=== PATIENT | female | born 1985 | race African-American/Black ===

== ENCOUNTER 2017-01-25 11:44 | Outpatient (CLI) ==
[2017-01-25 12:55] LABS: FLU INTERNAL QC INTERNAL QC VALID
[2017-01-25 12:56] LABS: RAPID FLU A NEGATIVE (NEGATIVE); RAPID FLU B POSITIVE (NEGATIVE)
== END 2017-01-25 11:45 | disposition home or self-care (01) ==
LOC: LAB 11:44
PROVIDERS: ATTEND Nurse Practitioner Family
DX: J02.9 Acute pharyngitis, unspecified (principal); R05 Cough; R52 Pain, unspecified
CPT/HCPCS: 87651; 87804; 87880

== ENCOUNTER 2017-01-29 10:18 | Outpatient (CLI) ==
[2017-01-29 10:36] LABS: BASOPHILS # (AUTO) 0.1 K/uL (0-0.2); BASOPHILS % (AUTO) 0.8 % (0.0-3.0); EOSINOPHILS # (AUTO) 0.1 K/ul (0.0-0.7); EOSINOPHILS % (AUTO) 1.2 % (0.0-7.0); HEMATOCRIT 42.2 % (37.0-47.0); HEMOGLOBIN 14.4 g/dl (12.0-16.0); IMMATURE GRANULOCYTE % (AUTO) 0.3 % (0.0-5.0); LYMPHOCYTES # (AUTO) 2.1 K/uL (0.60-3.4); LYMPHOCYTES % (AUTO) 35.8 (10.0-50.0); MEAN CORPUSCULAR HEMOGLOBIN 29.9 pg (27.0-31.0); MEAN CORPUSCULAR HGB CONC 34.1 (31.8-35.4); MEAN CORPUSCULAR VOLUME 87.7 fl (81.0-99.0); MONOCYTES # (AUTO) 0.3 K/uL (0.4-2.0); MONOCYTES % (AUTO) 5.7 (0-10); NEUTROPHILS # (AUTO) 3.3 K/ul (2.0-6.9); NEUTROPHILS % (AUTO) 56.2; PLATELET COUNT 257 10^3/uL (140-440); RED BLOOD COUNT 4.81 10^6/ul (4.20-5.40); WHITE BLOOD COUNT 5.92 K/ul (4.6-10.2)
[2017-01-29 11:16] LABS: ALBUMIN 3.8 g/dL (3.4-5.0); ANION GAP 12.9; BILIRUBIN,TOTAL 0.49 mg/dL (0.00-1.20); BUN/CREATININE RATIO 9.78; CALCIUM 9.4 mg/dL (8.2-10.2); CHOL/HDL RATIO 3.9 (4.5-5.5); CREATININE 0.92 mg/dL (0.60-1.30); FERRITIN 36.76 ng/mL (4.63-204.00); POTASSIUM 2.9 mmol/L (3.5-5.10); TOTAL PROTEIN 7.6 g/dL (6.4-8.2)
== END 2017-01-29 10:19 | disposition home or self-care (01) ==
LOC: LAB 10:18
PROVIDERS: ATTEND Nurse Practitioner Family
DX: Z00.00 Encounter for general adult medical examination without abnormal findings (principal); I10 Essential (primary) hypertension; E66.01 Morbid (severe) obesity due to excess calories; E55.9 Vitamin D deficiency, unspecified; D50.9 Iron deficiency anemia, unspecified
CPT/HCPCS: 36415; 80053; 80061; 82306; 82607; 82728; 83540; 83550; 84443; 84466; 85025

== ENCOUNTER 2017-02-01 10:45 | Outpatient (CLI) | END 2017-02-01 10:46 | disposition home or self-care (01) | LOC: LAB 10:45 | PROVIDERS: ATTEND Nurse Practitioner Family | DX: E87.6 Hypokalemia (principal) | CPT/HCPCS: 36415; 84132 ==

== ENCOUNTER 2017-02-04 11:06 | Outpatient (CLI) | END 2017-02-04 11:07 | disposition home or self-care (01) | LOC: LAB 11:06 | PROVIDERS: ATTEND Nurse Practitioner Family | DX: E87.6 Hypokalemia (principal) | CPT/HCPCS: 36415; 84132 ==

== ENCOUNTER 2017-06-02 11:28 | Emergency (ER) ==
[2017-06-02 11:33] VITALS: BP 147/96; TEMP 98.2; BMI 51.6
[2017-06-02 11:54] LABS: URINE PREGNANCY INTERNAL QC INTERNAL QC VALID
--- NOTE | 2017-06-02 12:31 | ED.PDOC ---
General ED Provider: Dr. MILES LEDEZMA-ER Chief Complaint: Knee Pain/Injury Stated Complaint: my knee is hurting for several mos Time Seen by Physician: 11:30 Mode of Arrival: Walk-In Information Source: Patient Exam Limitations: No limitations [facility] T[facility] Documentation Reviewed and Agree: Yes Musculoskeletal Complaint Exam - Knee Pain Complaint/Exam Mechanism of Injury: Reports: No known trauma Onset/Duration: mos Symptoms Are: Still present Onset of Pain: Reports: Immediate Initial Severity: Mild Current Severity: Moderate Location: Reports: Discrete Character: Reports: Dull, Aching Aggravating: Reports: Movement, Weight bearing, Prolonged standing, Stairs Associated Signs and Symptoms: Reports: Swelling. Denies: Redness, Bruising, Fever, Weakness, Numbness, Tingling Able to Bear Weight: Yes Related History: Reports: Similar episode Septic Arthritis Risk Factors: Reports: None Knee Findings: Present: Swelling, Tenderness, Limited range of motion Dandy Test Positive: No Brendon Test Positive: No Differential Diagnoses: Internal Derangement, Sprain, Strain Review of Systems - Review Of Systems Constitutional: Reports: No symptoms Eyes: Reports: No symptoms Ears, Nose, Mouth, Throat: Reports: No symptoms Respiratory: Reports: No symptoms Cardiac: Reports: No symptoms GI: Reports: No symptoms : Reports: No symptoms Musculoskeletal: Reports: Joint pain, Joint swelling Skin: Reports: No symptoms Neurological: Reports: No symptoms Endocrine: Reports: No symptoms Hematologic/Lymphatic: Reports: No symptoms All Other Systems: Reviewed and Negative Past Medical History - Past Medical History Previously Healthy: Yes Endocrine: Reports: Unknown Cardiovascular: Reports: Unknown Respiratory: Reports: Unknown Hematological: Reports: Unknown Gastrointestinal: Reports: Unknown Genitourinary: Reports: Unknown Neuro/Psych: Reports: Unknown Musculoskeletal: Reports: Unknown Cancer: Reports: Unknown Last Menstrual Period: end of april - Surgical History General Surgical History: Reports: Unknown - Family History Family History: Reports: Unknown - Social History Smoking Status: Never smoker Hx Substance Use: No Alcohol Screening: None Physical Exam - Physical Exam Appearance: Well-appearing, No pain distress, Well-nourished Pain Distress: Mild Eyes: LUISANA ENT: Ears normal, Nose normal, Oropharynx normal Neck: Supple Respiratory: Airway patent, Breath sounds clear, Breath sounds equal, Respirations nonlabored Cardiovascular: RRR GI/: Soft, Nontender, No masses, Bowel sounds normal, No Organomegaly Musculoskeletal: Normal strength, No edema, No calf tenderness, Limited ROM Skin: Warm, Dry, Normal color Neurological: Sensation intact Psychiatric: Affect appropriate, Mood appropriate Interpretation - Radiology Interpretation Radiology Interpretation By: ED Physician Radiology Results: Positive Critical Care Note - Critical Care Note Total Time (mins): 0 Course - Course Orders, Labs, Meds: Lab Review 06/02/17 11:42 Urine Test Negative Orders Category Date Time Status URINE Stat LAB 06/02/17 11:42 Completed ANKLE, RIGHT MIN 3 VIEWS Stat RADS 06/02/17 11:36 Taken KNEE, RIGHT 4 VIEWS Stat RADS 06/02/17 11:36 Taken Vital Signs: Temp Pulse Resp BP Pulse Ox 06/02/17 11:28 98.2 F 68 18 147/96 H 97 Departure - Departure Time of Disposition: 12:31 Disposition: HOME SELF-CARE Discharge Problem: Knee pain Instructions: Knee Pain (ED) Condition: Good Pt referred to PMD for follow-up: Yes Additional Instructions: ultram 50mg q 6hrs prn pain#15--f/u with pcp--consider mri and or ortho referral Allergies/Adverse Reactions: Allergies Sulfa (Sulfonamide Antibiotics) Allergy (Intermediate, Verified 06/02/17 11:31) Itching Home Medications: Ambulatory Orders Sertraline HCl [Zoloft] 50 mg PO DAILY 06/02/17 Disposition Discussed With: Patient
--- NOTE | 2017-06-02 14:20 | DI ---
EXAM:Three-view right ankle COMPARISON: None HISTORY: Trauma and pain FINDINGS: There is no acute fracture or dislocation. Alignment is anatomic. Joint spaces are well preserved. There is a calcaneal Achilles spur. There is pes planus. There is some soft tissue swel ling. No unexpected radio-opaque foreign bodies. IMPRESSION: 1. No acute osseous abnormality. 2. Calcaneal plantar spur and pes planus. 3. Soft tissue swelling.
--- NOTE | 2017-06-02 14:24 | DI ---
EXAM:Four view right knee COMPARISON: 10/13/2014 HISTORY: Trauma and pain FINDINGS: There is no acute fracture or dislocation. Alignment is anatomic. There is a fair amoun t of osteoarthritic joint space narrowing and all three compartments with some marginal osteophytosi s and subchondral sclerosis throughout. Soft tissues are unremarkable. No unexpected radio-opaque f oreign bodies. IMPRESSION: 1. No acute osseous abnormality. 2. Advanced osteoarthritic changes.
== END 2017-06-02 12:42 | disposition home or self-care (01) ==
LOC: ED 11:28
DX: M25.561 Pain in right knee (principal)
CPT/HCPCS: 81025; 99282

== ENCOUNTER 2017-06-28 08:47 | Outpatient (CLI) | END 2017-06-28 08:48 | disposition home or self-care (01) | LOC: CAR 08:47 | PROVIDERS: ATTEND Physician Assistant | DX: R07.9 Chest pain, unspecified (principal) | CPT/HCPCS: 93005; 93010 ==

== ENCOUNTER 2017-08-31 07:31 | Emergency (ER) ==
[2017-08-31 07:36] VITALS: BP 154/93; TEMP 97.8; BMI 52.1
--- NOTE | 2017-08-31 07:54 | ED.PDOC ---
General ED Provider: Dr. DORIS VOGT Chief Complaint: Non-specific Complaint Stated Complaint: patient complains of fever and chills for the past few days. Denies any nausea or vomiting Time Seen by Physician: 07:53 Mode of Arrival: Walk-In Information Source: Patient Exam Limitations: No limitations Primary Care Provider: JOSHUA CUI Nursing and Triage Documentation Reviewed and Agree: Yes Review of Systems - Review Of Systems Constitutional: Reports: Chills, Fever Eyes: Reports: No symptoms Ears, Nose, Mouth, Throat: Reports: No symptoms Respiratory: Reports: No symptoms Cardiac: Reports: No symptoms GI: Reports: No symptoms : Reports: No symptoms Musculoskeletal: Reports: No symptoms Skin: Reports: No symptoms Neurological: Reports: No symptoms Endocrine: Reports: No symptoms Hematologic/Lymphatic: Reports: No symptoms All Other Systems: Reviewed and Negative Past Medical History - Past Medical History Previously Healthy: Yes Endocrine: Reports: Unknown Cardiovascular: Reports: Unknown Respiratory: Reports: Unknown Hematological: Reports: Unknown Gastrointestinal: Reports: Unknown Genitourinary: Reports: Unknown Neuro/Psych: Reports: Unknown Musculoskeletal: Reports: Unknown Cancer: Reports: Unknown Last Menstrual Period: 08/23/17 - Surgical History General Surgical History: Reports: Unknown - Family History Family History: Reports: Unknown - Social History Smoking Status: Never smoker Hx Substance Use: No Alcohol Screening: None - Immunizations Tetanus Shot up to Date: Yes Physical Exam - Physical Exam Appearance: Well-appearing, No pain distress, Obese Eyes: LUISANA, EOMI, Conjunctiva clear ENT: Ears normal, Nose normal, Oropharynx normal Neck: Supple Respiratory: Airway patent, Breath sounds clear, Breath sounds equal, Respirations nonlabored Cardiovascular: RRR, Pulses normal, No rub, No murmur GI/: Soft, Nontender, No masses, Bowel sounds normal, No Organomegaly Musculoskeletal: Normal strength, ROM intact, No edema, No calf tenderness Skin: Warm, Dry, Normal color Neurological: Sensation intact, Motor intact, Alert, Oriented Psychiatric: Affect appropriate, Mood appropriate Critical Care Note - Critical Care Note Total Time (mins): 0 Course - Course Orders, Labs, Meds: Lab Review 08/31/17 07:36 Influenza A (Rapid) Negative Influenza B (Rapid) Negative Orders Category Date Time Status FLU A & B RAPID TEST [RAPID FLU A/B] Stat LAB 08/31/17 07:36 Completed Vital Signs: Temp Pulse Resp BP Pulse Ox 08/31/17 07:32 97.8 F 70 18 154/93 H 97 Departure - Departure Time of Disposition: 08:28 Disposition: HOME SELF-CARE Discharge Problem: Viral syndrome Instructions: Viral Syndrome (ED) Condition: Good Pt referred to PMD for follow-up: Yes Additional Instructions: Push fluids Take Motrin or Tylenol as needed for fever. Take Zofran as needed for Nausea. Prescriptions: Ondansetron HCl [Zofran Tab] 4 mg PO Q8H PRN #15 tablet PRN Reason: Nausea / Vomiting Allergies/Adverse Reactions: Allergies Sulfa (Sulfonamide Antibiotics) Allergy (Intermediate, Verified 08/31/17 07:35) Itching Home Medications: Ambulatory Orders Sertraline HCl [Zoloft] 50 mg PO DAILY 06/02/17 Ondansetron HCl [Zofran Tab] 4 mg PO Q8H PRN #15 tablet 08/31/17 Disposition Discussed With: Patient
[2017-08-31 08:16] LABS: FLU INTERNAL QC INTERNAL QC VALID; RAPID FLU A NEGATIVE (NEGATIVE); RAPID FLU B NEGATIVE (NEGATIVE)
== END 2017-08-31 08:45 | disposition home or self-care (01) ==
LOC: ED 07:31
DX: B34.9 Viral infection, unspecified (principal)
CPT/HCPCS: 87804; 99283

== ENCOUNTER 2017-10-02 12:06 | Outpatient (CLI) ==
[2017-10-02 12:25] LABS: BASOPHILS % (AUTO) 0.4 % (0.0-3.0); EOSINOPHILS # (AUTO) 0.2 K/ul (0.0-0.7); EOSINOPHILS % (AUTO) 2.6 % (0.0-7.0); HEMATOCRIT 36.5 % (37.0-47.0); HEMOGLOBIN 12.2 g/dl (12.0-16.0); IMMATURE GRANULOCYTE % (AUTO) 0.3 % (0.0-5.0); LYMPHOCYTES # (AUTO) 2.2 K/uL (0.60-3.4); LYMPHOCYTES % (AUTO) 29.6 (10.0-50.0); MEAN CORPUSCULAR HEMOGLOBIN 30.4 pg (27.0-31.0); MEAN CORPUSCULAR HGB CONC 33.4 (31.8-35.4); MONOCYTES # (AUTO) 0.5 K/uL (0.4-2.0); MONOCYTES % (AUTO) 6.3 (0-10); NEUTROPHILS # (AUTO) 4.4 K/ul (2.0-6.9); NEUTROPHILS % (AUTO) 60.8; PLATELET COUNT 260 10^3/uL (140-440); RED BLOOD COUNT 4.01 10^6/ul (4.20-5.40)
[2017-10-02 12:44] LABS: ALBUMIN 3.7 g/dL (3.4-5.0); ALBUMIN/GLOBULIN RATIO 1.09; ANION GAP 11.7; BILIRUBIN,TOTAL 0.4 mg/dL (0.00-1.20); BUN/CREATININE RATIO 11.81; CALCIUM 9.7 mg/dL (8.2-10.2); CREATININE 1.1 mg/dL (0.60-1.30); MAGNESIUM 1.9 mg/dL (1.7-2.2); TOTAL PROTEIN 7.1 g/dL (6.4-8.2)
[2017-10-02 13:03] LABS: POTASSIUM 2.7 mmol/L (3.5-5.10)
== END 2017-10-02 12:07 | disposition home or self-care (01) ==
LOC: LAB 12:06
PROVIDERS: ATTEND Physician Assistant
DX: E87.6 Hypokalemia (principal)
CPT/HCPCS: 36415; 80053; 83735; 85025; 93005; 93010

== ENCOUNTER 2017-10-04 09:40 | Outpatient (CLI) ==
[2017-10-04 10:22] LABS: ALBUMIN 3.8 g/dL (3.4-5.0); ALBUMIN/GLOBULIN RATIO 1.06; ANION GAP 13.8; BILIRUBIN,TOTAL 0.5 mg/dL (0.00-1.20); BUN/CREATININE RATIO 11.65; CALCIUM 9.6 mg/dL (8.2-10.2); CREATININE 1.03 mg/dL (0.60-1.30); POTASSIUM 2.8 mmol/L (3.5-5.10); TOTAL PROTEIN 7.4 g/dL (6.4-8.2)
== END 2017-10-04 09:41 | disposition home or self-care (01) ==
LOC: LAB 09:40
PROVIDERS: ATTEND Physician Assistant
DX: E87.6 Hypokalemia (principal)
CPT/HCPCS: 36415; 80053

== ENCOUNTER 2017-10-09 08:47 | Outpatient (CLI) ==
[2017-10-09 09:45] LABS: ALBUMIN 3.6 g/dL (3.4-5.0); ALBUMIN/GLOBULIN RATIO 1.09; ANION GAP 9.7; BILIRUBIN,TOTAL 0.3 mg/dL (0.00-1.20); CALCIUM 9.2 mg/dL (8.2-10.2); TOTAL PROTEIN 6.9 g/dL (6.4-8.2)
[2017-10-09 09:54] LABS: POTASSIUM 2.7 mmol/L (3.5-5.10)
== END 2017-10-09 08:48 | disposition home or self-care (01) ==
LOC: LAB 08:47
PROVIDERS: ATTEND Physician Assistant
DX: E87.6 Hypokalemia (principal)
CPT/HCPCS: 36415; 80053

== ENCOUNTER 2017-10-09 11:53 | Emergency (ER) ==
[2017-10-09 12:02] VITALS: BP 147/84; TEMP 97.8; BMI 53.2
[2017-10-09] MEDS ORDERED: POTASSIUM CHLORIDE PREMIX RUN 10 MEQ in PREMIX 100 ML WATER 1 BAG IV STA (13:25)
[2017-10-09] MEDS ORDERED: K-DUR PO STA (13:26)
[2017-10-09] MEDS ORDERED: POTASSIUM CHLORIDE PREMIX RUN 100 ML IV ONE (13:49)
--- NOTE | 2017-10-09 17:41 | ED.PDOC ---
General ED Provider: Dr. XAVIER MAJANO Chief Complaint: Non-specific Complaint Stated Complaint: abnormal out pt labs Time Seen by Physician: 13:00 (seen with nursing staff at all times ) Mode of Arrival: Walk-In Information Source: Patient Exam Limitations: No limitations Primary Care Provider: JOSHUA CUI Nursing and Triage Documentation Reviewed and Agree: Yes Reviewed sepsis parameters & appropriate labs ordered?: Yes (serum k as out pt was 2.7 asymptomatic ) System Inflammatory Response Syndrome: Not Applicable Sepsis Protocol: For patient's 13 years and over: Temp is 96.8 and below OR 101 and greater Pulse >90 BPM Resp >20/minute Acutely Altered Mental Status Are patient's symptoms suggestive of a new infection, such as: -Pneumonia -Skin, Soft Tissue -Endocarditis -UTI -Bone, Joint Infection -Implantable Device -Acute Abdominal Infection -Wound Infection -Meningitis -Blood Stream Catheter Infection -Unknown Miscellaneous Complaint Exam - Complex/Multi-System Complaint/Exam Onset/Duration: today serum k as out pt was low 2.7 Symptoms Are: Still present Current Severity: None Associated Signs and Symptoms: Denies: Decreased responsiveness, Confusion, Agitation, Dizziness, Weakness, Syncope, Headache, Short of air, Cough, Wheezing , Hemoptysis, Chest pain, Palpitations, Edema, Nausea, Vomiting, Diarrhea, Abdominal pain, Back pain, Dysuria, Hematemesis, Melena, Decreased oral intake, Fever, Diaphoresis, Immunocompromised, Anticoagulation Therapy, Recent medication changes, Indwelling medical file clerk, Prior MRSA, Prior VRE, Recent trauma, Remote trauma Recent Echo/LV Function: No Respiratory Distress: None JVD Present: No Tachypnea Present: No Stridor Present: No Abdominal Findings: Present: Normal findings Glascow Coma Scale (see protocol): 15 Focal Weakness: Present: None Focal Sensory Loss: Present: None Gait: Normal Differential Diagnosis: Metabolic Abnormality Review of Systems - Review Of Systems Constitutional: Reports: No symptoms Eyes: Reports: No symptoms Ears, Nose, Mouth, Throat: Reports: No symptoms Respiratory: Reports: No symptoms Cardiac: Reports: No symptoms GI: Reports: No symptoms : Reports: No symptoms Musculoskeletal: Reports: No symptoms Skin: Reports: No symptoms Neurological: Reports: No symptoms Endocrine: Reports: No symptoms Hematologic/Lymphatic: Reports: No symptoms All Other Systems: Reviewed and Negative Past Medical History - Past Medical History Previously Healthy: Yes Endocrine: Reports: Unknown Cardiovascular: Reports: Unknown Respiratory: Reports: Unknown Hematological: Reports: Unknown Gastrointestinal: Reports: Unknown Genitourinary: Reports: Unknown Neuro/Psych: Reports: Unknown Musculoskeletal: Reports: Unknown Cancer: Reports: Unknown Last Menstrual Period: 08/2017 - Surgical History General Surgical History: Reports: Unknown - Family History Family History: Reports: Unknown - Social History Smoking Status: Never smoker Hx Substance Use: No Alcohol Screening: None - Immunizations Tetanus Shot up to Date: Yes Physical Exam - Physical Exam Appearance: Well-appearing, No pain distress, Well-nourished Eyes: LUISANA, EOMI, Conjunctiva clear ENT: Ears normal, Nose normal, Oropharynx normal Respiratory: Airway patent, Breath sounds clear, Breath sounds equal, Respirations nonlabored Cardiovascular: RRR, Pulses normal, No rub, No murmur GI/: Soft, Nontender, No masses, Bowel sounds normal, No Organomegaly Musculoskeletal: Normal strength, ROM intact, No edema, No calf tenderness Skin: Warm, Dry, Normal color Neurological: Sensation intact, Motor intact, Reflexes intact, Cranial nerves intact, Alert, Oriented Psychiatric: Affect appropriate, Mood appropriate Critical Care Note - Critical Care Note Total Time (mins): 0 Course - Course Hematology/Chemistry: 10/09/17 16:56 Orders, Labs, Meds: Lab Review 10/09/17 10/09/17 12:55 16:56 Sodium 144 144 Potassium 2.7 L* 3.1 L Chloride 105 106 Carbon Dioxide 32 30 Anion Gap 9.7 11.1 BUN 11 13 Creatinine 1.01 0.91 Estimated GFR (MDRD) 77.00 86.00 BUN/Creatinine Ratio 10.89 14.28 Glucose 96 84 Calcium 9.2 9.2 Total Bilirubin 0.3 AST 17 ALT 25 Alkaline Phosphatase 74 Total Protein 7.2 Albumin 3.6 Globulin 3.6 Albumin/Globulin Ratio 1.00 Orders Category Date Time Status EKG-(ED ONLY) Stat CARDIO 10/09/17 13:23 Completed BMP [BASIC METABOLIC PANEL] Stat LAB 10/09/17 16:56 Completed COMPREHENSIVE METABOLIC PANEL Stat LAB 10/09/17 12:55 Completed Potassium Chloride [K-Dur] MEDS 10/09/17 13:26 Discontinued 40 meq PO ONCE STA Potassium Chloride [Potassium Chloride Premix Run] 10 MEDS 10/09/17 13:25 Discontinued meq Premix 100 ml Water 1 bag IV ONCE Potassium Chloride [Potassium Chloride Premix Run] 100 MEDS 10/09/17 13:49 Discontinued ml IV .STK-MED Medications Discontinued Medications Generic Name Dose Route Start Last Admin Trade Name Ray PRN Reason Stop Dose Admin Potassium Chloride 10 meq/ 100 mls @ 100 mls/hr 10/09/17 13:25 10/09/17 14:09 Sterile Water IV 10/09/17 14:24 100 mls/hr ONCE STA Administration Potassium Chloride 40 meq 10/09/17 13:26 10/09/17 14:01 K-Dur PO 10/09/17 13:27 40 meq ONCE STA Administration Vital Signs: Temp Pulse Resp BP Pulse Ox 10/09/17 11:55 97.8 F 62 16 147/84 H 96 Departure - Departure Time of Disposition: 17:41 Disposition: HOME SELF-CARE Discharge Problem: Hypokalemia Instructions: Hypokalemia (ED) Condition: Good Pt referred to PMD for follow-up: Yes Additional Instructions: Please call your Family Physician as soon as possible to schedule a follow-up appointment. Allergies/Adverse Reactions: Allergies Sulfa (Sulfonamide Antibiotics) Allergy (Intermediate, Verified 10/09/17 12:02) Itching Home Medications: Ambulatory Orders Sertraline HCl [Zoloft] 50 mg PO DAILY 06/02/17 Potassium Citrate [Potassium Citrate ER] 20 meq PO BID 10/09/17
== END 2017-10-09 18:10 | disposition home or self-care (01) ==
LOC: ED 11:53
DX: E87.6 Hypokalemia (principal)
CPT/HCPCS: 36415; 80048; 80053; 93005; 93010; 96365; 96366; 99283

== ENCOUNTER 2018-01-22 10:53 | Outpatient (CLI) | payer OTHER | END 2018-01-22 10:54 | disposition home or self-care (01) | LOC: LAB 10:53 | PROVIDERS: ATTEND Internal Medicine Nephrology | DX: E55.9 Vitamin D deficiency, unspecified (principal); E87.6 Hypokalemia; I10 Essential (primary) hypertension | CPT/HCPCS: 36415; 80053; 84100 ==

== ENCOUNTER 2018-02-01 16:16 | Observation (INO) ==
[2018-02-01 16:19] VITALS: BMI 52.4
--- NOTE | 2018-02-01 17:02 | ED.PDOC ---
General ED Provider: Dr. MILES MCNAMARA Chief Complaint: Dizziness Stated Complaint: [place] intermittent chest palpitations for last 2days. 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 Denies stenuous activity. Dizziness. No syncope. No chest pain or dyspnea. Time Seen by Physician: 16:45 Mode of Arrival: Walk-In Information Source: Patient Exam Limitations: No limitations Primary Care Provider: JOSHUA CUI Nursing and Triage Documentation Reviewed and Agree: Yes Reviewed sepsis parameters & appropriate labs ordered?: Yes System Inflammatory Response Syndrome: Not Applicable Sepsis Protocol: For patient's 13 years and over: Temp is 96.8 and below OR 101 and greater Pulse >90 BPM Resp >20/minute Acutely Altered Mental Status Are patient's symptoms suggestive of a new infection, such as: -Pneumonia -Skin, Soft Tissue -Endocarditis -UTI -Bone, Joint Infection -Implantable Device -Acute Abdominal Infection -Wound Infection -Meningitis -Blood Stream Catheter Infection -Unknown System Inflammatory Response Syndrome: Not Applicable Cardiovascular Complaint Exam - Palpitations Complaint/Exam Symptoms Are: Resolved Timing: Intermittent Initial Severity: Moderate Current Severity: None Character: Reports: Fast, Irregular, Pounding Aggravating: Reports: Exertion, Rest, Position Alleviating: Reports: Rest Associated Signs and Symptoms: Reports: Lightheadedness, Dizziness Related History: Similar episode Related Surgical History: Reports: None Cardiac Risk Factors: Reports: Hypertension, Family history Atrial Fibrillation Risk Factors: Reports: Hypertension Thyroid Exam: Normal Differential Diagnoses: Mitral Valve Prolapse, Hypokalemia, Panic Disorder, Hyperventilation, Paroxysmal SVT Quality Indicators for AMI: EKG in 10min. Quality Indicators for Cardiac Chest Pain: EKG in 10min. Review of Systems - Review Of Systems Constitutional: Reports: No symptoms Eyes: Reports: No symptoms Ears, Nose, Mouth, Throat: Reports: No symptoms Respiratory: Reports: No symptoms Cardiac: Reports: No symptoms, Irregular heart rate, Lightheadedness, Palpitations GI: Reports: No symptoms : Reports: No symptoms Musculoskeletal: Reports: No symptoms Skin: Reports: No symptoms Neurological: Reports: No symptoms Endocrine: Reports: No symptoms Hematologic/Lymphatic: Reports: No symptoms All Other Systems: Reviewed and Negative Past Medical History - Past Medical History Previously Healthy: Yes Endocrine: Reports: Unknown Cardiovascular: Reports: Hypertension, Unknown Respiratory: Reports: Unknown Hematological: Reports: Unknown Gastrointestinal: Reports: Unknown Genitourinary: Reports: Unknown Neuro/Psych: Reports: Unknown Musculoskeletal: Reports: Unknown Cancer: Reports: Unknown Last Menstrual Period: 2 days ago - Surgical History General Surgical History: Reports: Unknown - Family History Family History: Reports: Unknown - Social History Smoking Status: Never smoker Hx Substance Use: No Alcohol Screening: None Physical Exam - Physical Exam Appearance: Well-appearing, No pain distress, Well-nourished, Obese Eyes: LUSIANA, EOMI, Conjunctiva clear ENT: Ears normal, Nose normal, Oropharynx normal Respiratory: Airway patent, Breath sounds clear, Breath sounds equal, Respirations nonlabored Cardiovascular: RRR, Pulses normal, No rub, No murmur GI/: Soft, Nontender, No masses, Bowel sounds normal, No Organomegaly Musculoskeletal: Normal strength, ROM intact, No edema, No calf tenderness Skin: Warm, Dry, Normal color Neurological: Sensation intact, Motor intact, Reflexes intact, Cranial nerves intact, Alert, Oriented Psychiatric: Affect appropriate, Mood appropriate Critical Care Note - Critical Care Note Total Time (mins): 60 Course - Course Hematology/Chemistry: 02/01/18 17:20 02/01/18 17:20 Orders, Labs, Meds: Lab Review 02/01/18 02/01/18 02/01/18 17:20 17:20 17:20 WBC 7.78 RBC 4.50 Hgb 13.6 Hct 40.8 MCV 90.7 MCH 30.2 MCHC 33.3 RDW Coeff of Patrica 13.6 Plt Count 236 Immature Gran % (Auto) 0.3 Neut % (Auto) 61.0 Lymph % (Auto) 30.7 [place] % (Auto) 6.0 Eos % (Auto) 1.4 Baso % (Auto) 0.6 Immature Gran # (Auto) 0.0 Neut # (Auto) 4.7 Lymph # (Auto) 2.4 [place] # (Auto) 0.5 Eos # (Auto) 0.1 Baso # (Auto) 0.1 D-Dimer (Manual) 266.22 Sodium 140 Potassium 3.2 L Chloride 100 Carbon Dioxide 29 Anion Gap 14.2 BUN 8 Creatinine 1.06 Estimated GFR (MDRD) 72.00 BUN/Creatinine Ratio 7.54 Glucose 85 Calcium 10.0 Total Bilirubin 0.6 AST 23 ALT 22 Alkaline Phosphatase 70 Total Protein 7.6 Albumin 3.8 Globulin 3.8 Albumin/Globulin Ratio 1.00 Orders Category Date Time Status ADMIT PATIENT INPATIENT .TO MEDSURG (MONITORED BED) ADMISSION 02/01/18 19: 25 Active EKG-(ED ONLY) Stat CARDIO 02/01/18 17:05 Completed TELEMETRY MONITORING TELE CARE 02/01/18 19:28 Active CBC W/ AUTO DIFF Stat LAB 02/01/18 17:20 Completed CMP [COMPREHENSIVE METABOLIC PANEL] Stat LAB 02/01/18 17:20 Completed D-DIMER Stat LAB 02/01/18 17:20 Completed UA [URINALYSIS C & S IF INDICATED] Stat LAB 02/01/18 17:05 Uncollected URINE DRUG SCREEN (RAPID FOR ED) [DRUG SCREEN, URINE, LAB 02/01/18 17:05 Uncollected RAPID] Stat CHEST, 2 VIEWS PA & LAT Stat RADS 02/01/18 17:05 Completed Vital Signs: Temp Pulse Resp BP Pulse Ox 02/01/18 16:17 97.2 F L 72 16 141/109 H 96 CATIE Risk Score CATIE Risk Score: Risk Score Odds of by 30D 0 0.1 (0.1-0.2) 1 0.3 (0.2-0.3) 2 0.4 (0.3-0.5) 3 0.7 (0.6-0.9) 4 1.2 (1.0-1.5) 5 2.2 (1.9-2.6) 6 3.0 (2.5-3.6) 7 4.8 (3.8-6.1) Departure - Departure Time of Disposition: 19:15 Disposition: ADMITTED INPATIENT Discharge Problem: Hypertension, uncontrolled, Heart palpitations, Obesity Condition: Good Pt referred to PMD for follow-up: Yes (Dr de la garza) [facility] verified?: Yes Allergies/Adverse Reactions: Allergies Sulfa (Sulfonamide Antibiotics) Allergy (Intermediate, Verified 10/09/17 12:02) Itching Home Medications: Ambulatory Orders Sertraline HCl [Zoloft] 50 mg PO DAILY 06/02/17 Potassium Citrate [Potassium Citrate ER] 20 meq PO BID 10/09/17 Ibuprofen 800 mg PO PRN PRN 02/01/18 Disposition Discussed With: Patient, Family Activities Patient Interests:: Visiting/Socializing, Listening to Music Additional Information: discussed case with Dr De La Garza who agrees to admission and evaluation of patients symptoms
--- NOTE | 2018-02-01 18:46 | DI ---
EXAM: Two views of the chest. History: Palpitations Findings: Heart size is within normal limits. No focal consolidation. No appreciable pleural fluid and no pneumothorax. No acute osseous abnormalities. Impression: No acute cardiopulmonary process
[2018-02-01] MEDS ORDERED: K-DUR PO STA (20:49)
[2018-02-01] MEDS ORDERED: NON-FORMULARY MEDICATION (Metoprolol Tartrate [Metoprolol Tartrate] 100 MG) PO SCH (21:00)
[2018-02-01] MEDS ORDERED: POTASSIUM CITRATE 20 MEQ PO SCH (21:00)
[2018-02-01] MEDS ORDERED: LOPRESSOR ONE (21:39)
[2018-02-01] MEDS: LOPRESSOR PO SCH (21:59)
[2018-02-02] MEDS: NORVASC PO SCH (08:38)
[2018-02-02] MEDS: HYZAAR 50-12.5 MG TAB PO SCH (08:38)
[2018-02-02] MEDS: VITAMIN D PO SCH (08:38)
[2018-02-02] MEDS: LOPRESSOR PO SCH ×2 (08:38→20:30)
[2018-02-02] MEDS: K-DUR PO SCH ×2 (08:38→20:30)
[2018-02-02] MEDS: FERROUS SULFATE PO SCH (08:39)
[2018-02-02] MEDS: ZOLOFT PO SCH (08:39)
[2018-02-02] MEDS ORDERED: NON-FORMULARY MEDICATION (Ferrous Sulfate [Ferrous Sulfate] 325 MG) PO SCH (09:00)
[2018-02-02] MEDS ORDERED: NON-FORMULARY MEDICATION (Amlodipine Besylate [Amlodipine Besylate] 10 MG) PO SCH (09:00)
[2018-02-02] MEDS ORDERED: NON-FORMULARY MEDICATION (Losartan/Hydrochlorothiazide [Losartan-Hctz 100-25 Mg Tab] 1 EAC PO SCH (09:00)
[2018-02-03] MEDS ORDERED: DECADRON 4 MG/ML SDV IM STA (08:44)
[2018-02-03] MEDS: VITAMIN D PO SCH (08:52)
[2018-02-03] MEDS: NORVASC PO SCH (08:52)
[2018-02-03] MEDS: FERROUS SULFATE PO SCH (08:52)
[2018-02-03] MEDS: HYZAAR 50-12.5 MG TAB PO SCH (08:52)
[2018-02-03] MEDS: LOPRESSOR PO SCH (08:52)
[2018-02-03] MEDS: ZOLOFT PO SCH (08:52)
[2018-02-03] MEDS: K-DUR PO SCH (08:52)
[2018-02-03 10:00] VITALS: BP 117/76; TEMP 98
--- NOTE | 2018-02-03 12:57 | HOLTER ---
PATIENT INFORMATION AND COMMENTS Attending Physician: DR. NICO KIRKPATRICK Indications: UNCONTROLLED HYPERTENSION, HEART PALPITATIONS, OBESTIY __ Patient Medications: LOPRESSOR, FERROUS SULFATE, LOSARTAN, POTASSIUM, AMLODIPINE, ZOLOFT, METOPROLOL __ Pre-procedure Summary: Protocol: Standard Heart Rate Started: 02/01/182247 Minimum: 53 BPM Weight: 315 LBS Ended: 02/02/182240 Maximum: 110 BPM Height: 65" Duration: 23 HRS 52 MIN Average: 67 BPM _ INTERPRETATIONS/OBSERVATIONS: 1. BASIC RHYTHM: SINUS, RATE 53 BPM TO 110 BPM, AVERAGE 67 BPM 2. INFREQUENT PAC'S AND PVC'S, SOME ARE BLOCKED PAC'S 3. NO TACHY ARRYTHMIA'S 4. ACTIVITY LOG NOT MAINTAINED MTDD
--- NOTE | 2018-02-03 13:32 | ECHO2D ---
Date of Exam: 02/02/18 Ordering Physician: DR. LEANNE HURLEY Room #: [id number] Reason for Echo: PALPITATIONS M-Mode Normal Adult Results LV Dimensions Normal Adult Results AoV Opening excursions >1.6 >1.6 LVEDD-base- 3.5-5.8 3.9 Ao root dimensions 2.0-3.7 3.3 LVESD-base- 3.1-4.6 L. Atrium dimensions 1.9-3.8 3.6 Post. Wall thickness 0.8-1.1 1.3 IV septum (thickness) 0.7-1.2 1.3 Post. Wall excursion 0.72-1.3 NORMAL Septal motion NORMAL Systolic motion R. Ventricular cavity 1.5-2.0 NORMAL LVEF 60% 66% Paradoxical septal wall motion NORMAL 2-D : 2-D M Mode Echocardiogram was performed using apical four chamber and left parasternal long and short axis views. Mitral, tricuspid and aortic valves appear to be normal. Contractility of the left ventricle seems to be normal, so is the cavity size. Left atrial cavity size and aortic root appear to be normal. There is no pericardial effusion. There is no thrombus noted in the left ventricular or left aortic cavity. No mitral valve prolapse noted. M-MODE: MV: NORMAL AV: NORMAL TV: NORMAL PV: CHAMBER SIZE: NORMAL WALL MOTION: NORMAL PERICARDIUM: NORMAL INTERPRETATION: 1. LEFT VENTRICULAR HYPERTROPHY 2. NORMAL LEFT VENTRICULAR CONTRACTILITY 3. NORMAL VALVES MTDD
--- NOTE | 2018-02-11 14:44 | HP ---
DATE OF SERVICE: 02/01/18 HISTORY OF PRESENT ILLNESS: This is a 32-year-old female came to the emergency room with palpitations, anxiety and elevated blood pressure. She was having some dizzy episodes. The patient has been having trouble controlling the blood pressure. The patient was seen by Dr. Molina. White count was normal. D. dimer 266, potassium 3.2. Blood pressure was 141/109. At that time, the patient was admitted to the hospital with uncontrolled hypertension, palpitations and dizziness to rule out any cardiac problems. History of hypokalemia and the patient does have some muscle cramps. REVIEW OF SYSTEMS: CONSTITUTIONAL: No fatigue. No fever, no chills. HEENT: Normal. ENDOCRINE: No weight gain; no weight loss. CVS: No chest pain. No PND, no orthopnea. No shortness of breath. No PND, no orthopnea. RESPIRATORY: No cough, no congestion. No hemoptysis. GI: No nausea, no vomiting. No abdominal pain. No melena. : No hematuria. No polyuria. MUSCULOSKELETAL: No joint swelling. PSYCHIATRIC: Not anxious. No depression. No suicidal thoughts. No homicidal thoughts. SKIN: Intact, no open lesions. PAST MEDICAL HISTORY: Hypertension Left ventricular hypertrophy Hypokalemia Sleep apnea on CPAP Osteoarthritis DJD spine Bipolar disorder (was on medication but not now) PAST SURGICAL HISTORY: None PERSONAL HISTORY: Nonsmoker. Does not drink alcohol. FAMILY HISTORY: Significant for back problem and heart problems. MEDICATIONS: (Home) Norvasc Metoprolol Losartan Hydrochlorothiazide Sertraline Potassium Ibuprofen Cholecalciferol Ferrous Sulfate ALLERGIES: SULFA PHYSICAL EXAMINATION: V/S: BP 152/101, respiratory rate 17, heart rate 67, temperature 97.7, saturation 98. HEENT: Atraumatic, normocephalic. No scleral icterus. NECK: Supple. No JVD, no bruit. No lymphadenopathy. No thyromegaly. HEART: S1, S2 normal. No murmur. No cyanosis or clubbing. No ascites. LUNGS: Clear to auscultation. No rales or rhonchi. ABDOMEN: Morbid obese lady. Soft, nontender. Bowel sounds are active. No CVA tenderness. No rigidity or guarding. EXTREMITIES: No pedal edema. No cyanosis or clubbing MUSCULOSKELETAL: Normal joints, no swelling. NEUROLOGIC: Normal. SKIN: Intact; no open lesions. LYMPHATIC: No lymph nodes palpable. LABS: Sodium 140, potassium 3.2, chloride 100, bicarb 29, BUN 8, creatinine 1.06, glucose 85, white count 7.78, hemoglobin 13.6, hematocrit 40.8, platelet count 236. ASSESSMENT: 1. UNCONTROLLED HYPERTENSION 2. DIZZINESS 3. PALPITATIONS 4. HISTORY OF HYPERTENSION 5. DYSLIPIDEMIA 6. LEFT VENTRICULAR HYPERTROPHY 7. HYPOKALEMIA PLAN: 1. Admit patient to the regular floor 2. CBC, CMP today and daily 3. Cardiac enzymes and troponin 4. Replace potassium 5. Continue home medication TIME SPENT: MORE THAN 65 minutes today MTDD
--- NOTE | 2018-02-11 14:56 | DS ---
DATE OF SERVICE: 02/03/18 FINAL DIAGNOSIS: 1. PALPITATIONS AND DIZZINESS 2. HYPERTENSION, UNCONTROLLED 3. HISTORY OF HYPERTENSION 4. CARDIOMEGALY 5. HISTORY OF LVH 6. OBSTRUCTIVE SLEEP APNEA, DOES NOT USE A CPAP 7. MORBID OBESITY 8. OSTEOARTHRITIS 9. BIPOLAR DISORDER, USE TO BE ON MEDICATION DISCHARGE INSTRUCTIONS: 1. Discharge the patient home 2. Continue home medications 3. Followup with Jennifer Azar [facility] MEDICATIONS AT DISCHARGE: Norvasc 10 mg p.o. daily Losartan Hydrochlorothiazide Cholecalciferol Ferrous Sulfate Ibuprofen Metoprolol 50 mg p.o. b.i.d. Potassium Zoloft NEW PRESCRIPTIONS: Meclizine (Antivert) 25 mg one p.o. twice daily if needed for dizziness Prednisone 10 mg one p.o. with food twice daily for 5 days DIET INSTRUCTIONS: Cardiac and Healthy ACTIVITY: As much as tolerated SMOKING: N/A DISEASE SPECIFIC EDUCATION: Lifestyle modification, weight loss discussed Uncontrolled hypertension Risk of stroke CAD The patient verbalized understanding to all the above. HOSPITAL COURSE: This is a 32-year-old female who has a history of high blood pressure which fluctuates all the time. She came to the emergency room dizzy, lightheaded, palpitations. She does have a history of sleep apnea but she does not use the CPAP. EKG was normal sinus rhythm. No ST-T wave changes. Initial blood pressure was 141/109 then 152/104. Resumed the home medication. Blood pressure became normal. The patient's cholesterol panel was normal. Potassium was replaced. Echocardiogram was done which did show enlarged heart. Otherwise, no new findings. Explained to the patient about the lifestyle modifications, weight loss, diet control. TIME SPENT: MORE THAN 60 MINUTES MTDD
== END 2018-02-03 13:32 | disposition home or self-care (01) ==
LOC: ED 16:16 → INTOOBSV 19:44 → UNDOADMOB 19:44 → MEDSURG B 19:44 → UNDODISOB 02-03 13:32
PROVIDERS: ADMIT Emergency Medicine; ATTEND Emergency Medicine
DX: R00.2 Palpitations (principal); R42 Dizziness and giddiness; I51.7 Cardiomegaly; I10 Essential (primary) hypertension; E66.01 Morbid (severe) obesity due to excess calories; E87.6 Hypokalemia; G47.30 Sleep apnea, unspecified; M19.90 Unspecified osteoarthritis, unspecified site; F31.9 Bipolar disorder, unspecified; F41.9 Anxiety disorder, unspecified; Z79.899 Other long term (current) drug therapy
CPT/HCPCS: 36415; 80053; 80061; 80306; 81001; 84443; 85025; 85379; 87086; 93005; 93010; 93227; 99284

== ENCOUNTER 2018-04-28 11:24 | Emergency (ER) ==
[2018-04-28 11:32] VITALS: BP 135/87; TEMP 98.3; BMI 53.7
--- NOTE | 2018-04-28 11:47 | ED.PDOC ---
General ED Provider: Dr. HUSSEIN MEHTA Chief Complaint: Vaginal Bleeding Stated Complaint: Vaginal bleeding 2 weeks Time Seen by Physician: 11:43 Mode of Arrival: Walk-In Information Source: Patient Primary Care Provider: JOSHUA CUI Nursing and Triage Documentation Reviewed and Agree: Yes Does patient meet sepsis criteria?: No System Inflammatory Response Syndrome: Not Applicable Sepsis Protocol: For patient's 13 years and over: Temp is 96.8 and below OR 101 and greater Pulse >90 BPM Resp >20/minute Acutely Altered Mental Status Are patient's symptoms suggestive of a new infection, such as: -Pneumonia -Skin, Soft Tissue -Endocarditis -UTI -Bone, Joint Infection -Implantable Device -Acute Abdominal Infection -Wound Infection -Meningitis -Blood Stream Catheter Infection -Unknown Complaint Exam - Complaint/Exam Patient Complains of: Reports: Vaginal discharge (Vaginal bleeding X 2 weeks) Symptoms Are: Still present Initial Severity: Moderate Current Severity: Moderate Location of Pain: Reports: None Aggravating: Reports: None Alleviating: Reports: None Associated Signs and Symptoms: Reports: Back pain (also weak and feeling like might pass out) Related History: Reports: Similar episode (Usually has heavy periods - never this long; saw SCROLL SHEAR OPERATOR 2 months ago because of "double period"; told to come back in May) Review of Systems - Review Of Systems Constitutional: Reports: Malaise, Weakness Respiratory: Reports: No symptoms Cardiac: Reports: Lightheadedness (feeling might pass out) : Denies: No symptoms, Burning, Dysuria, Discharge, Frequency, Flank pain Musculoskeletal: Reports: Back pain All Other Systems: Reviewed and Negative Past Medical History - Past Medical History Previously Healthy: Yes Endocrine: Reports: Unknown Cardiovascular: Reports: Hypertension, Unknown Respiratory: Reports: Unknown Hematological: Reports: Unknown Gastrointestinal: Reports: Unknown Genitourinary: Reports: Unknown Neuro/Psych: Reports: Unknown Musculoskeletal: Reports: Unknown Cancer: Reports: Unknown Last Menstrual Period: now - Surgical History General Surgical History: Reports: Unknown - Family History Family History: Reports: Unknown - Social History Smoking Status: Never smoker Hx Substance Use: No Alcohol Screening: None Physical Exam - Physical Exam Appearance: Well-appearing ENT: Oropharynx normal Neck: Supple Respiratory: Airway patent, Breath sounds clear, Breath sounds equal Cardiovascular: RRR, Pulses normal GI/: Soft, Nontender, Bowel sounds normal Musculoskeletal: Normal strength, ROM intact, No edema Skin: Warm, Dry, Normal color Neurological: Sensation intact, Motor intact Psychiatric: Affect appropriate, Mood appropriate Critical Care Note - Critical Care Note Total Time (mins): 20 Course - Course Hematology/Chemistry: 04/28/18 12:03 04/28/18 12:03 Orders, Labs, Meds: Lab Review 04/28/18 04/28/18 04/28/18 12:03 12:03 12:03 WBC 6.95 RBC 3.97 L Hgb 12.1 Hct 35.2 L MCV 88.7 MCH 30.5 MCHC 34.4 RDW Coeff of Patrica 13.2 Plt Count 267 Immature Gran % (Auto) 0.4 Neut % (Auto) 65.9 Lymph % (Auto) 26.2 Hale % (Auto) 4.6 Eos % (Auto) 2.2 Baso % (Auto) 0.7 Immature Gran # (Auto) 0.0 Neut # (Auto) 4.6 Lymph # (Auto) 1.8 Hale # (Auto) 0.3 L Eos # (Auto) 0.2 Baso # (Auto) 0.1 Sodium 137 Potassium 3.6 Chloride 105 Carbon Dioxide 24 Anion Gap 11.6 BUN 10 Creatinine 0.96 Estimated GFR (MDRD) 81.00 BUN/Creatinine Ratio 10.41 Glucose 95 Calcium 9.3 Total Bilirubin 0.4 AST 13 L ALT 10 L Alkaline Phosphatase 74 Total Protein 7.0 Albumin 3.6 Globulin 3.4 Albumin/Globulin Ratio 1.06 Serum , Qual Negative Orders Category Date Time Status CBC W/ AUTO DIFF Stat LAB 04/28/18 12:03 Completed COMPREHENSIVE METABOLIC PANEL Stat LAB 04/28/18 12:03 Completed SERUM TEST [SERUM ] Stat LAB 04/28/18 12:03 Completed Vital Signs: Temp Pulse Resp BP Pulse Ox 04/28/18 11:25 98.3 F 80 20 135/87 97 Departure - Departure Time of Disposition: 13:16 Disposition: HOME SELF-CARE Discharge Problem: Abnormal uterine bleeding Instructions: Menorrhagia (ED) Condition: Good Pt referred to PMD for follow-up: Yes (Call SCROLL SHEAR OPERATOR for appointment) IPMP verified?: No (No narcotics prescribed) Additional Instructions: Follow up with primary care or SCROLL SHEAR OPERATOR; call for appointment. Let them know of your ER visit and that blood work showed no significant loss of blood or any other abnormality. Allergies/Adverse Reactions: Allergies Sulfa (Sulfonamide Antibiotics) Allergy (Intermediate, Verified 04/28/18 11:34) Itching Home Medications: Ambulatory Orders Potassium Citrate [Potassium Citrate ER] 20 meq PO BID 10/09/17 Ferrous Sulfate 325 mg PO DAILY 02/01/18 Ibuprofen 800 mg PO PRN PRN 02/01/18 Metoprolol Tartrate 50 mg PO BID 02/01/18
== END 2018-04-28 13:35 | disposition home or self-care (01) ==
LOC: ED 11:24
DX: N93.8 Other specified abnormal uterine and vaginal bleeding (principal)
CPT/HCPCS: 36415; 80053; 84703; 85025; 99282

== ENCOUNTER 2018-07-20 07:35 | Emergency (ER) ==
[2018-07-20 07:44] VITALS: BP 153/105; TEMP 98; BMI 50.7
[2018-07-20 08:55] LABS: URINE PREGNANCY TEST NEGATIVE (NEGATIVE)
--- NOTE | 2018-07-20 09:12 | DI ---
Exam: Two-view chest x-ray. Date: 07/20/2018. Comparison: None. HISTORY: Palpitations. FINDINGS: No acute osseous abnormalities are seen. The lungs are clear. Cardiac silhouette and pulm onary vasculature are normal. Impression: No acute intrathoracic findings.
--- NOTE | 2018-07-20 09:27 | ED.PDOC ---
General ED Provider: Dr. XAVIER MAJANO Chief Complaint: Palpitations Stated Complaint: palpitation Time Seen by Physician: 07:40 (seen with her nurse at all times) Mode of Arrival: Walk-In Information Source: Patient Exam Limitations: No limitations Primary Care Provider: JOSHUA CUI Nursing and Triage Documentation Reviewed and Agree: Yes Does patient meet sepsis criteria?: No System Inflammatory Response Syndrome: Not Applicable Sepsis Protocol: For patient's 13 years and over: Temp is 96.8 and below OR 101 and greater Pulse >90 BPM Resp >20/minute Acutely Altered Mental Status Are patient's symptoms suggestive of a new infection, such as: -Pneumonia -Skin, Soft Tissue -Endocarditis -UTI -Bone, Joint Infection -Implantable Device -Acute Abdominal Infection -Wound Infection -Meningitis -Blood Stream Catheter Infection -Unknown Cardiovascular Complaint Exam - Palpitations Complaint/Exam Onset/Duration: today Symptoms Are: Resolved Timing: Intermittent Initial Severity: Mild Current Severity: None Character: Reports: Pounding Aggravating: Reports: Rest Alleviating: Reports: None Associated Signs and Symptoms: Denies: Lightheadedness, Dizziness, Syncope, Chest pain, Shortness of breath, Diaphoresis, Nausea, Vomiting Related History: Similar episode Related Surgical History: Reports: None Cardiac Risk Factors: Reports: Hypertension Pulmonary Embolism Risk Factors: Reports: None Atrial Fibrillation Risk Factors: Reports: Hypertension Thyroid Exam: Normal Differential Diagnoses: Paroxysmal SVT Quality Indicators for AMI: EKG in 10min. Quality Indicators for Cardiac Chest Pain: EKG in 10min. Quality Indicator For Non-Traumatic Chest Pain/Syncope: EKG Performed Review of Systems - Review Of Systems Constitutional: Reports: No symptoms Eyes: Reports: No symptoms Ears, Nose, Mouth, Throat: Reports: No symptoms Respiratory: Reports: No symptoms Cardiac: Reports: Palpitations GI: Reports: No symptoms : Reports: No symptoms Musculoskeletal: Reports: No symptoms Skin: Reports: No symptoms Neurological: Reports: No symptoms Endocrine: Reports: No symptoms Hematologic/Lymphatic: Reports: No symptoms All Other Systems: Reviewed and Negative Past Medical History - Past Medical History Previously Healthy: Yes Endocrine: Reports: Unknown Cardiovascular: Reports: Hypertension, Unknown Respiratory: Reports: Unknown Hematological: Reports: Unknown Gastrointestinal: Reports: Unknown Genitourinary: Reports: Unknown Neuro/Psych: Reports: Unknown Musculoskeletal: Reports: Unknown Cancer: Reports: Unknown Last Menstrual Period: last month - Surgical History General Surgical History: Reports: Unknown - Family History Family History: Reports: Unknown - Social History Smoking Status: Never smoker Hx Substance Use: No Alcohol Screening: None Physical Exam - Physical Exam Appearance: Well-appearing, No pain distress, Well-nourished Eyes: LUISANA, EOMI, Conjunctiva clear ENT: Ears normal, Nose normal, Oropharynx normal Respiratory: Airway patent, Breath sounds clear, Breath sounds equal, Respirations nonlabored Cardiovascular: RRR, Pulses normal, No rub, No murmur GI/: Soft, Nontender, No masses, Bowel sounds normal, No Organomegaly Musculoskeletal: Normal strength, ROM intact, No edema, No calf tenderness Skin: Warm, Dry, Normal color Neurological: Sensation intact, Motor intact, Reflexes intact, Cranial nerves intact, Alert, Oriented Psychiatric: Affect appropriate, Mood appropriate Interpretation - Radiology Interpretation Radiology Interpretation By: Radiologist Radiology Results: No acute changes - Nursing Tech Rate: Normal Rhythm: Sinus Ectopy: None - EKG Interpretation Rate: Normal Rhythm: Sinus Ectopy: None [place]: Left ST Segment: Normal Re-Evaluation - Re-Evaluation Time of Re-Evaluation: 08:00 (no palpitation) Status: Improved Vital Signs Stable: Yes Pain Level: 0 Appearance: NAD Lungs: Clear Skin: Warm and Dry Neuro: Alert and Oriented X3 CV: RRR - Re-Evaluation Time of Re-Evaluation: 09:28 (no palpitations) Status: Improved Vital Signs Stable: Yes Pain Level: 0 Appearance: NAD Skin: Warm and Dry Neuro: Alert and Oriented X3 CV: RRR Critical Care Note - Critical Care Note Total Time (mins): 0 Course - Course Hematology/Chemistry: 07/20/18 08:10 07/20/18 08:10 Orders, Labs, Meds: Lab Review 07/20/18 07/20/18 07/20/18 08:10 08:10 08:40 WBC 7.46 RBC 4.23 Hgb 12.1 Hct 36.1 L MCV 85.3 MCH 28.6 MCHC 33.5 RDW Coeff of Patrica 12.9 Plt Count 261 Immature Gran % (Auto) 0.3 Neut % (Auto) 73.2 Lymph % (Auto) 19.4 [place] % (Auto) 5.5 Eos % (Auto) 1.1 Baso % (Auto) 0.5 Immature Gran # (Auto) 0.0 Neut # (Auto) 5.5 Lymph # (Auto) 1.5 [place] # (Auto) 0.4 Eos # (Auto) 0.1 Baso # (Auto) 0.0 Sodium 141.7 Potassium 3.02 L Chloride 106.8 Carbon Dioxide 26.3 Anion Gap 11.62 BUN 6.6 L Creatinine 1.09 Estimated GFR (MDRD) 70.00 BUN/Creatinine Ratio 6.05 Glucose 99.5 Calcium 9.37 Total Bilirubin 0.27 AST 32.6 ALT 16.3 Alkaline Phosphatase 70.0 Total Creatine Kinase 299.5 H CK-MB (CK-2) 0.502 CK-MB (CK-2) % 0.1600 Troponin I < 0.012 Total Protein 7.24 Albumin 4.14 Globulin 3.10 Albumin/Globulin Ratio 1.33 Urine Test Negative Orders Category Date Time Status EKG-(ED ONLY) Stat CARDIO 07/20/18 07:52 Completed CBC W/ AUTO DIFF Stat LAB 07/20/18 08:10 Completed COMPREHENSIVE METABOLIC PANEL Stat LAB 07/20/18 08:10 Completed CREATINE KINASE Stat LAB 07/20/18 08:10 Completed TROPONIN I Stat LAB 07/20/18 08:10 Completed URINE Stat LAB 07/20/18 08:40 Completed CHEST, 2 VIEWS PA & LAT Stat RADS 07/20/18 07:52 Completed Vital Signs: Temp Pulse Resp BP Pulse Ox 07/20/18 07:37 98.0 F 70 20 153/105 H 96 CATIE Risk Score CATIE Risk Score: Risk Score Odds of by 30D 0 0.1 (0.1-0.2) 1 0.3 (0.2-0.3) 2 0.4 (0.3-0.5) 3 0.7 (0.6-0.9) 4 1.2 (1.0-1.5) 5 2.2 (1.9-2.6) 6 3.0 (2.5-3.6) 7 4.8 (3.8-6.1) Departure - Departure Time of Disposition: 09:27 Disposition: HOME SELF-CARE Discharge Problem: Palpitations Instructions: Heart Palpitations (ED), Near Syncope (ED) Condition: Good Pt referred to PMD for follow-up: Yes IPMP verified?: No Additional Instructions: Please call your Family Physician as soon as possible to schedule a follow-up appointment. Allergies/Adverse Reactions: Allergies Sulfa (Sulfonamide Antibiotics) Allergy (Intermediate, Verified 07/20/18 07:44) Itching Home Medications: Ambulatory Orders Potassium Citrate [Potassium Citrate ER] 20 meq PO BID 10/09/17 Ferrous Sulfate 325 mg PO DAILY 02/01/18 Metoprolol Tartrate 50 mg PO BID 02/01/18 Disposition Discussed With: Patient
[2018-07-20] MEDS ORDERED: K-DUR PO STA (09:32)
--- NOTE | 2018-07-22 13:47 | HOLTER ---
PATIENT INFORMATION AND COMMENTS Attending Physician: JOSHUA CUI APRN Indications: NEAR SYNCOPE, PALPITATIONS __ Patient Medications: FERROUS SULFATE, AMLODIPINE, METOPROLOL, LOSARTAN/HCTZ, POTASSIUM __ Pre-procedure Summary: Protocol: Standard Heart Rate Started: 07/20/181027 Minimum: 49 BPM Weight: 305 LBS Ended: 07/21/18 1028 Maximum: 178 BPM Height: 65" Duration: 24 HOURS Average: 81 BPM _ INTERPRETATIONS/OBSERVATIONS: 1. BASIC RHYTHM: SINUS RATE 50 BPM TO 170 BPM, AVERAGE 80 BPM, MARKED SINUS ARRHYTHMIA NOTED AT TIMES 2. FEW PAC'S AND PVC'S 3. NO ST-T WAVE CHANGES FROM BASELINE 4. ACTIVITY LOG NOT AVAILABLE MTDD
== END 2018-07-20 10:24 | disposition home or self-care (01) ==
LOC: ED 07:35
DX: R00.2 Palpitations (principal)
CPT/HCPCS: 36415; 80053; 81025; 82550; 82553; 84484; 85025; 93005; 93010; 99283

== ENCOUNTER 2018-10-15 09:42 | Outpatient (CLI) ==
--- NOTE | 2018-10-15 10:08 | DI ---
EXAM: RIGHT ANKLE THREE VIEWS HISTORY: Ankle pain FINDINGS: There is no fracture or dislocation. General bone density appears normal. No joint effus ion. Enthesopathy of the posterior calcaneus is noted. IMPRESSION: 1. Spurring of the posterior calcaneus. Otherwise within the limits.
--- NOTE | 2018-10-15 10:09 | DI ---
EXAM: LEFT ANKLE 3 VIEWS HISTORY: Ankle pain FINDINGS: Bone density is normal. There is no fracture or dislocation. Ankle joints proper have no arthropathy. There is no joint effusion. Enthesopathy of the posterior calcaneus is present. IMPRESSION: 1. Mild bony spurring of the posterior calcaneus, otherwise unremarkable.
== END 2018-10-15 09:43 | disposition home or self-care (01) ==
LOC: RAD 09:42
PROVIDERS: ATTEND Physician Assistant
DX: M25.571 Pain in right ankle and joints of right foot (principal); M25.572 Pain in left ankle and joints of left foot

== ENCOUNTER 2019-05-22 09:00 | Outpatient (RCR) ==
[2019-03-26 12:51] VITALS: BMI 45.8
--- NOTE | 2019-05-15 11:15 | RS.OPPTDN ---
Subjective Date of Note: 05/15/19 Visit #: 5 Number of visits approved by Insurance: pending Date of Evaluation: 04/22/19 Payer Source: Medicaid Treatment Diagnosis: R ankle pain Current Subjective/complaints:: Patient reports no current pain ,but had sharp, shooting pain at work last night. *Precautions: n/a Pain Assessment - Pain Description Pain Location: R ankle ( medial aspect ) Pain Description: sharp,shooting pain occasionally at work last night Current Pain Intensity: 0 at rest - Treatment Modality: Ultrasound Parameters/Method Applied: 10 mins. ,cont. mode @ 1.5 w/cm2to medial aspect of R ankle Patient Position: Sitting - Heat/Cryotherapy Treatment: Hot Pack (20 mins. prior to US) Interventions - Exercise/Activities/Manual Therapy Exercises/Activities: 25 mins. total.Passive stretching of right heel cords, passive IV,EV, PF. Isometrics for the above motions x 10. Green t - band for all directions 3 sets x 10. Total minutes of Exercise: 25 Manual Therapy: n/a HOME EXERCISE PROGRAM: pt given written HEP including: towel stretch, isometric ankle inversion, eversion, and dorsi-flexion. Green theraband for right ankle df, inv, and eversion. - Charges Timed Code Treatment Minutes: 35 Total Treatment Time: 55 Procedures billed for this date of service:: ,US ex 2 Assessment: Patient tolerates ankle exercises well,except the inversion does elicit aching and weak feeling per patient .She has moderate heelcord tightness present.We also discussed the use of frozen water bottle along the plantar surface for pain control. Patient Education: Home Exercise Program, Activity Modification Patient demonstrates compliance with HEP?: Yes Short Term Goals Goal #1: pt independent with initial HEP Goal to be met by: 05/08/19 Progress towards Goal:: Progressing Goal #2: pt with decreased edema R ankle Goal to be met by: 05/08/19 Progress towards Goal:: Progressing Goal #3: Decrease pain in R ankle < 7/10 Goal to be met by: 05/08/19 Progress towards Goal:: Met Usp Goals Goal #1: Decrease pain < 5/10 R ankle Goal to be met by: 05/22/19 Progress towards goal: Progressing Goal #2: pt report able to perform work duties without increased pain in R ankle Goal to be met by: 05/22/19 Goal #3: ROM R ankle WFL's Goal to be met by: 05/22/19 Progress towards goal: Progressing Plan Dates of Front End Ui Developer Goals: 05/22/19 Expiration date of current Insurance Approval:: pending PLAN: Cont. skilled PT to reduce /eliminate R ankle pain , strengthening for pain free ADL's.
--- NOTE | 2019-05-22 11:32 | RS.OPPTDN ---
Subjective Date of Note: 05/22/19 Visit #: 6 Number of visits approved by Insurance: pending Date of Evaluation: 04/22/19 Payer Source: Medicaid Treatment Diagnosis: R ankle pain Current Subjective/complaints:: Patient reports right foot pain is improving. States she has bought new slip on sandals that have gel soles, which have given her more support. She continues to wear good supportive athletic shoes at work. States she will continue HEP. *Precautions: n/a Pain Assessment - Pain Description Pain Location: right medial ankle Current Pain Intensity: no pain following treatment Worst Pain Intensity: mild to mod following full shift of standing/walking at work - Treatment Modality: Ultrasound Parameters/Method Applied: [id number] at 1.5w/cm2 to the right ankle superior medial joint prior to EX. Patient Position: Sitting - Heat/Cryotherapy Treatment: Hot Pack ([id number] to the right ankle prior to US and EX. Pt in supine. ) Interventions - Exercise/Activities/Manual Therapy Exercises/Activities: 19mins Passive stretching of right heel cords and ankle all directions. Isometrics ankle all 4 directions. Blue theraband right ankle all 4 directions. Ended with additional manual stretching. Total minutes of Exercise: 19mins Manual Therapy: n/a HOME EXERCISE PROGRAM: pt given written HEP including: towel stretch, isometric ankle inversion, eversion, and dorsi-flexion. Green theraband for right ankle df, inv, and eversion. - Charges Timed Code Treatment Minutes: 19mins Total Treatment Time: 44mins Procedures billed for this date of service:: HP, US, EX Assessment: Patient progressed well and met 5 of 6 treatment goals. POC is ending this week and she will continue HEP. Patient Education: Home Exercise Program, Education of Plan of Care Comments: Reviewed and finalized patient education and HEP. Patient demonstrates compliance with HEP?: Yes Short Term Goals Goal #1: pt independent with initial HEP Goal to be met by: 05/08/19 Progress towards Goal:: Met Goal #2: pt with decreased edema R ankle Goal to be met by: 05/08/19 Progress towards Goal:: Met Goal #3: Decrease pain in R ankle < 7/10 Goal to be met by: 05/08/19 Progress towards Goal:: Met Numerical Tool Programmer Goals Goal #1: Decrease pain < 5/10 R ankle Goal to be met by: 05/22/19 Progress towards goal: Met Goal #2: pt report able to perform work duties without increased pain in R ankle Goal to be met by: 05/22/19 Progress towards goal: Progressing Goal #3: ROM R ankle WFL's Goal to be met by: 05/22/19 Progress towards goal: Met Plan Dates of Numerical Tool Programmer Goals: 05/22/19 Expiration date of current Insurance Approval:: 05/22/19 PLAN: Discharge with HEP.
== END 2019-06-13 23:59 ==
PROVIDERS: ATTEND Nurse Practitioner Family
DX: M25.571 Pain in right ankle and joints of right foot (principal); M25.471 Effusion, right ankle